=== PATIENT | male | born 1985 | race Caucasian/White ===

== ENCOUNTER 2022-02-19 10:25 | Outpatient (CLI) | payer OTHER, SELFPAY ==
[2022-02-19 11:35] LABS: Rheumatoid Factor < 8.6 IU/ML (<12)
[2022-02-19 11:37] LABS: Erythrocyte Sedimentation Rate 46 mm/hr (0-20)
[2022-02-19 12:16] LABS: Hepatitis C Virus Antibody Negative (Negative)
[2022-02-24 12:40] LABS: Anti Cyclic Citrullinated Pept <16 Units (<20)
== END 2022-02-19 10:26 | disposition home or self-care (01) ==
PROVIDERS: PCP Internal Medicine; Visit Provider Internal Medicine
DX: M79.10 Myalgia, unspecified site (principal); M13.0 Polyarthritis, unspecified
CPT/HCPCS: 36415; 85652; 86038; 86200; 86430; 86747; 86803

== ENCOUNTER → 2022-04-03 11:21 | Outpatient (CLI) | payer OTHER, SELFPAY ==
--- NOTE | ~2022-04-03 | XR_ITS ---
XR foot RT min 3V DATE: 04/03/2022 11:39 INDICATION: Polyarthritis TECHNIQUE: 4 views COMPARISON: None FINDINGS: Mild posterior plantar calcaneal enthesopathy. Mild osteophyte is at first metatarsophalangeal joint. No fracture or dislocation, periosteal reaction or bone destruction is detected. IMPRESSION: Mild posterior calcaneal enthesopathy Mild osteophyte is at first metatarsophalangeal joint Reviewed, dictated and finalized at location A.
--- NOTE | ~2022-04-03 | XR_ITS ---
XR ankle RT min 3V DATE: 04/03/2022 11:39 INDICATION: Right ankle pain TECHNIQUE: 4 views COMPARISON: None FINDINGS: No fracture or dislocation of the ankle or disruption of the ankle mortise is detected. The re is mild osteoarthritis at the tibiotalar joint. Mild posterior calcaneal enthesopathy. IMPRESSION: Mild tibiotalar osteoarthritis Reviewed, dictated and finalized at location A.
== END ==
PROVIDERS: PCP Internal Medicine; Visit Provider Internal Medicine
DX: M77.31 Calcaneal spur, right foot (principal); M19.071 Primary osteoarthritis, right ankle and foot
CPT/HCPCS: 73610; 73630